=== PATIENT | female | born 1960 | race Asian ===

== ENCOUNTER 2018-02-16 10:01 | Emergency (ER) | payer MEDICAID ==
[~2018-02-16] VITALS: Ht 162.6 cm; Wt 67.3 kg
[2018-02-16 10:03] VITALS: BP 128/85
[2018-02-16 10:39] LABS: MICROSCOPIC INDICATED
[2018-02-16 10:40] LABS: CULTURE INDICATED? YES
== END 2018-02-16 11:26 | disposition home or self-care (01) ==
LOC: ED 11:06
DX: N30.00 Acute cystitis without hematuria (principal)
CPT/HCPCS: 81001; 87086; 99284

== ENCOUNTER → 2020-06-25 | Outpatient (CLI) | payer OTHER ==
[~2020-06-25] MED LIST: OMNIPAQUE 350 MG/ML, 100ML BOTTLE ONE
== END | disposition home or self-care (01) ==
LOC: CFH 13:19
PROVIDERS: ATTEND Internal Medicine
DX: R10.32 Left lower quadrant pain (principal); R11.0 Nausea; R14.0 Abdominal distension (gaseous); Z87.442 Personal history of urinary calculi
CPT/HCPCS: 74177; 82565; Q9967

== ENCOUNTER 2020-10-03 12:24 | Emergency (ER) | payer OTHER ==
[~2020-10-03] VITALS: Ht 162.6 cm; Wt 69.5 kg
--- NOTE | 2020-10-03 13:11 | NUR ---
PT WAS ADVISED BY HER GI DOCTOR TO COME IN D/T BLOODY STOOL. SHE HAD A SCOPE COMPLETED LAST WEDNESDAY.
[2020-10-03] MEDS ORDERED: PANTOPRAZOLE 80 MG in SODIUM CHLORIDE 0.9% 100 ML IV SCH (13:30)
[2020-10-03] MEDS ORDERED: SODIUM CHLORIDE 0.9% 1,000ML IVBOLUS ONE (13:30)
[2020-10-03] MEDS ORDERED: SODIUM CHLORIDE FLUSH 10ML SYR IVF ONE (13:30)
[2020-10-03] MEDS ORDERED: PANTOPRAZOLE 80 MG in SODIUM CHLORIDE 0.9% 50 ML IVPB ONE (13:30)
[2020-10-03 13:50] LABS: BASOPHILS % (AUTO) 1 % (0-1); EOSINOPHILS % (AUTO) 2 % (1-7); LYMPHOCYTES % (AUTO) 38 % (22-44); MEAN CORPUSCULAR HEMOGLOBIN 29.6 pg (27.0-34.8); MEAN CORPUSCULAR HGB CONC 34.3 g/dL (32.4-35.8); MEAN PLATELET VOLUME 7.6 fL (7.4-10.4); MONOCYTES % (AUTO) 5 % (2-9); NEUTROPHILS % (AUTO) 54 % (42-75); PLATELET COUNT 322 x10^3/uL (130-400); RED BLOOD COUNT 3.14 x10^6/uL (3.82-5.3); RED CELL DISTRIBUTION WIDTH 12.8 % (9.6-15.2)
[2020-10-03 13:53] LABS: MD NO
--- NOTE | 2020-10-03 13:53 | NUR ---
PT LAYING ON ALLAN, AT BS. LATRICEN/VSS. CALL LIGHT WITHIN REACH. NO NEEDS AT THIS TIME
[2020-10-03 13:59] LABS: INTERNATIONAL NORMALIZED RATIO 0.91 (0.93-1.1); PROTHROMBIN TIME 9.8 Seconds (9.6-11.5)
[2020-10-03 14:03] LABS: ANION GAP 5 mmol/L (5-15); CALCIUM 8.5 mg/dL (8.5-10.1); CHLORIDE 107 mmol/L (98-107); CREATININE 0.75 mg/dL (0.55-1.02)
[2020-10-03 14:04] LABS: ALANINE AMINOTRANSFERASE 23 U/L (12-78); ALBUMIN 3.5 g/dL (3.4-5.0)
[2020-10-03 14:08] LABS: ALKALINE PHOSPHATASE 71 U/L (45-117); BILIRUBIN,TOTAL 0.2 mg/dL (0.2-1.0); TOTAL PROTEIN 7.5 g/dL (6.4-8.2); TROPONIN I < 0.015 ng/mL (0.000-0.045)
--- NOTE | 2020-10-03 14:10 | NUR ---
PT AMBULATED STEADILY TO , BACK TO [facility] & TRANSPORTED TO CT.
[2020-10-03] MEDS ORDERED: OMNIPAQUE 350 MG/ML, 100ML BOTTLE ONE (14:26)
--- NOTE | 2020-10-03 14:30 | NUR ---
THIS RN & PRIMARY RN (JONAH) ARRIVED TO ROOM PT RETURNED FROM CT. PT PLACED BACK ON MONITORS BY AMBULATORY SERVICES REPRESENTATIVE WHO REPORTED PT C/O CHEST PRESSURE EN ROUTE BACK TO ROOM. WHEN ASKED HOW SHE WAS FEELING UPON RETURN, PT STATED "I FEEL BETTER, MY CHEST DOESN'T BOTHER ME ANYMORE", PT ANXIOUS BUT REDIRECTABLE, VSS WITH HR [id number].
--- NOTE | 2020-10-03 14:33 | NUR ---
PT BACK FROM CT. SITTING ON ADRIÁNRBC, AT BS. LATRICEN/VSS. CALL LIGHT WITHIN REACH
--- NOTE | 2020-10-03 15:29 | NUR ---
PT C/O FEELING ANXIOUS STATING SHE IS HAVING TROUBLE BREATHING, PLACED ON 1L N.C. FOR COMFORT. PT STATES SHE DOES NOT WANT MEDICATION. NO CHANGES IN CARDIAC RHYTHM OR OTHER VITALS SINCE ARRIVAL TO ED. VERBAL REASSURANCE GIVEN WITH LITTLE HELP D/T HUSBANDS FRUSTRATION WITH SITUATION Addendum: 10/03/20 at 1609 by [email or web address] PT C/O FEELING ANXIOUS STATING SHE IS HAVING TROUBLE BREATHING, PLACED ON 1L N.C. FOR COMFORT. PT STATES SHE DOES NOT WANT MEDICATION. NO CHANGES IN CARDIAC RHYTHM OR OTHER VITALS SINCE ARRIVAL TO ED. VERBAL REASSURANCE GIVEN WITH LITTLE HELP D/T HUSBANDS FRUSTRATION WITH SITUATION. ERP AWARE
[2020-10-03] MEDS ORDERED: METOCLOPRAMIDE 5 MG/ML, 2ML IVPush STA (15:40)
[2020-10-03 15:50] VITALS: BP 126/76
--- NOTE | 2020-10-03 15:52 | NUR ---
PT SITTING ON [place], ON PHONE WITH MD. AT BS. LATRICEN/VSS. CALL LIGHT WITHIN REACH. PT STATES SHE FEELS LESS ANXIOUS. NO NEEDS AT THIS TIME.
--- NOTE | 2020-10-03 17:13 | NUR ---
GI AT BS
[2020-10-03] MEDS ORDERED: PROPOFOL 10 MG/ML, 20ML ONE (17:24)
[2020-10-03] MEDS ORDERED: PROPOFOL 10 MG/ML, 20ML IVPush ONE (18:00)
--- NOTE | 2020-10-03 18:44 | NUR ---
Patient & given discharge instructions and they have confirmed that they understand the instructions. Patient ambulatory with steady gait but taken to DC desk via WC per pt request.
== END 2020-10-03 18:47 | disposition home or self-care (01) ==
LOC: ED 18:06
DX: K92.1 Melena (principal); K92.0 Hematemesis; D64.9 Anemia, unspecified; G89.29 Other chronic pain; R10.13 Epigastric pain; R11.2 Nausea with vomiting, unspecified; R06.02 Shortness of breath; R94.31 Abnormal electrocardiogram [ECG] [EKG]; Z79.899 Other long term (current) drug therapy
CPT/HCPCS: 36415; 43247; 71045; 74177; 80053; 83605; 83690; 84484; 85025; 85610; 93005; 96365; 96366; 99152; 99285; C9113; J7030; Q9967